=== PATIENT | female | born 1975 | race Caucasian/White ===

== ENCOUNTER 2018-09-27 15:42 | Emergency (ER) | payer OTHER ==
[~2018-09-27] VITALS: Ht 172.7 cm; Wt 125.7 kg
[2018-09-27] MEDS ORDERED: [UNRECOGNIZED DRUG - OTHER] PO (15:57)
[2018-09-27 16:10] LABS: URINE BILIRUBIN NEGATIVE (Negative); URINE BLOOD 3+ (Negative); URINE GLUCOSE-RANDOM NEGATIVE (Negative); URINE KETONES NEGATIVE (Negative); URINE LEUKOCYTES-REFLEX NEGATIVE (Negative); URINE NITRITE-REFLEX NEGATIVE (Negative); URINE PROTEIN TRACE (Negative); URINE UROBILINOGEN 0.2 E.U./dl (0.2-1.0)
[2018-09-27 16:11] LABS: URINE COLOR RED
[2018-09-27 16:12] LABS: URINE CLARITY SLIGHTLY CLOUDY
[2018-09-27 16:18] LABS: CASTS None Seen /LPF (None Seen); CRYSTALS None Seen /LPF (None Seen); MUCUS None Seen strn/LPF (None Seen); SQUAMOUS 4-10 Moderate /LPF (0-3); URINE RBC >20 Many /HPF (0-2)
[2018-09-27 16:19] LABS: BACTERIA-REFLEX None Seen /HPF (None Seen); URINE WBC-REFLEX None Seen /HPF (0-5)
[2018-09-27 16:44] LABS: ABSOLUTE EOSINOPHILS 0.1 thou/uL (0.0-0.7); ABSOLUTE LYMPHOCYTES 1.9 thou/uL (0.8-5.3); ABSOLUTE MONOCYTES 0.5 thou/uL (0.0-1.2); ABSOLUTE NEUTROPHILS 5.6 thou/uL (1.6-8.1); BASOPHILS 0.6 %; EOSINOPHILS 1.5 %; HEMATOCRIT 40.8 % (37.0-47.0); HEMOGLOBIN 13.7 gm/dL (12.0-15.0); LYMPHOCYTES 23.5 %; MCHC 33.6 g/dL (28.0-37.0); MCV 83.3 fL (80.0-100.0); MONOCYTES 5.6 %; MPV 9.1 fl. (7.2-11.1); NUCLEATED RBCS 0 /100WBC; PLATELET COUNT* 204 thou/uL (150-400); POLYS 68.8 %; RBC 4.89 mil/uL (4.20-5.00); RDW-CV 13.9 % (10.5-14.5); WBC 8.1 thou/uL (4.0-11.0)
[2018-09-27 17:01] LABS: ALBUMIN 3.9 g/dL (3.4-5.0); CALCIUM 9.7 mg/dL (8.5-10.1); CREATININE 0.7 mg/dL (0.6-1.3); POTASSIUM 3.6 mmol/L (3.5-5.1); TOTAL BILIRUBIN 0.3 mg/dL (<0.1-1.0); TOTAL PROTEIN 7.8 g/dL (6.4-8.2)
[2018-09-27] MEDS ORDERED: ZOFRAN ODT4 MG PO (18:21)
[2018-09-27] MEDS ORDERED: NORCO 5-325 TA1 EACH PO (18:21)
[2018-09-27 18:47] VITALS: BP 145/87
== END 2018-09-27 18:49 | disposition home or self-care (01) ==
LOC: M.ERS 15:42
PROVIDERS: Physician Assistant
DX: R10.11 Right upper quadrant pain (principal); R11.2 Nausea with vomiting, unspecified; Z90.49 Acquired absence of other specified parts of digestive tract

== ENCOUNTER → 2018-10-24 | Day surgery (SDC) | payer OTHER ==
[~2018-10-24] MED LIST: DIETHYLPROPION25 MG PO; NORCO 5-325 TA1 EACH PO; ZOFRAN ODT4 MG PO; [UNRECOGNIZED DRUG - OTHER] PO
--- NOTE | 2018-10-25 19:03 | OP ---
[address] [address] OPERATIVE REPORT Name: MADISONLINK John Room: [facility]#: [id number] Admission: 10/24/18 Attend Phys: Aubree Joe DO Discharge: Date of : 77 Report #: [id number] THIS REPORT FOR: //name// CC: Aubree Joe [facility] physician/PCP DATE OF SERVICE: 10/24/2018 PREOPERATIVE DIAGNOSES: Cholelithiasis, cholecystitis, dilated common bile duct. POSTOPERATIVE DIAGNOSES: Cholelithiasis, cholecystitis, dilated common bile duct. FINDINGS: Dilated gallbladder with multiple dense adhesions, distended stomach. The bile duct was dilated, but appeared to be without obstruction. Contrast did flow promptly into the duodenum. Fluoroscopic time was 14 seconds. SURGEON: Aubree Joe DO. COSURGEON: Yecenia Siegel, PGY-1. HYDRAULIC ASSEMBLER: Emmanuel Evans, MS3. PROCEDURE PERFORMED: Laparoscopic cholecystectomy with intraoperative cholangiogram and surgeon interpretation of images. ESTIMATED BLOOD LOSS: 5. ANESTHESIA: General endotracheal and local. SPECIMENS: Gallbladder. COMPLICATIONS: None. CONDITION: Stable. DISPOSITION: PACU to home. HISTORY OF PRESENT ILLNESS: The patient is a very rhea 43-year-old female who presented to my office with a complaint of right upper quadrant abdominal pain which had been intermittent over the years. She had had 2 previous ultrasounds completed, both of which showed gallstones, cholelithiasis, cholecystitis and a dilated common bile duct. She had symptoms consistent with biliary colic. She was then consented for laparoscopic cholecystectomy with intraoperative cholangiogram. Risks discussed included bleeding, infection, pain, scar [address] [address] OPERATIVE REPORT Name: LINK WALLACE Room: [facility]#: [id number] Admission: 10/24/18 Attend Phys: Aubere Joe DO Discharge: Date of : 77 Report #: [id number] formation, injury to bowel, liver or bile duct, hernia at the incision sites, need for an open procedure and risks of general anesthesia. The patient understood these risks and elected to proceed. DESCRIPTION OF PROCEDURE: The patient was brought to the operating room. She was laid supine on the operating room table. SCDs were placed on bilateral lower extremities. Ancef was given in the perioperative period. General endotracheal anesthesia was induced by Anesthesia without difficulty. Abdomen was prepped and draped in standard sterile fashion. Timeout was performed to verify patient and procedure. A 10 mL of 0.5% Marcaine were injected in the infraumbilical area. An 11 blade was used to make an incision through an old incision in the infraumbilical area. Cautery was used for hemostasis. S retractors were used to visualize the fascia. Fascia was grasped and elevated between 2 Kochers. Fascia was incised using cautery. Peritoneum was bluntly entered using a Sumaya clamp. Finger was introduced into the abdomen to assure that there were no luis-incisional adhesions, none were identified. Two stitches of 0 Vicryl placed on the fascia. Christopher trocar was introduced and secured with 0 Vicryl stitches. Abdomen was insufflated. The patient was placed head up and tilted left side down. Camera was introduced and a brief anterior abdominal exploration was undertaken. The stomach was hugely distended. Anesthesia did fashion pass an OG tube with excellent decompression of the stomach. Gallbladder was then easily visualized. It also was distended and covered with a dense layer of adhesions. Trocars were then introduced under direct visualization, an 11 in the subxiphoid area and two 5 mm in the right upper quadrant. Edge of the gallbladder was grasped and elevated. Adhesions were taken down until we reached the triangle of Calot utilizing cautery. The peritoneum overlying the triangle was then incised using cautery. Both duct and artery were then easily visualized, both were circumferentially dissected free using a [place] dissector. Valencia clamp was then brought onto the field and the neck of the gallbladder was grasped. Catheter was introduced with one pass. We had excellent flow of saline. The patient was then returned to supine position. C-arm was brought into the field and fluoroscopy was undertaken. Contrast promptly flowed through the cystic duct into the common bile duct. The bilateral hepatic radicles could easily be seen. There was no sign of any obstruction. The common bile duct itself was somewhat dilated, but contrast did flow freely into the duodenum. The catheter and clamp were then removed. The patient was returned to the head up and left side down position. The duct and artery were then both doubly clipped and ligated. Gallbladder was then removed from the liver bed utilizing cautery with no further difficulty. Specimen was placed within an EndoCatch bag. Liver bed was inspected. It was hemostatic. Clips were inspected. They were intact. There was no bleeding or leakage noted from the area of the clips. The patient was then returned to supine. Trocars were removed under direct visualization. There was no bleeding noted from the peritoneum. Abdomen was then completely desufflated. Christopher trocar was removed and EndoCatch bag was removed with the specimen intact. Kochers were then placed on the fascia of our infraumbilical port. Previously placed [address] [place] [address] OPERATIVE REPORT Name: LINK WALLACE Room: [facility]#: [id number] Admission: 10/24/18 Attend Phys: Aubree Joe DO Discharge: Date of : 77 Report #: [id number] stitches were removed and a #0 Vicryl stitch was placed in [id number] fashion with excellent approximation of the fascia. An additional 10 mL of 0.5% Marcaine were injected in the fascia. This wound was closed in a layered fashion using deep and superficial stitches of 3-0 Vicryl in inverted interrupted fashion. All skin wounds were then closed with 4-0 Monocryl. A total of 30 mL of 0.5% Marcaine were used to anesthetize the wounds. Wounds were then cleansed and covered with Mastisol, Steri-Strips, 4 x 4's and a Tegaderm. The patient was then allowed to awaken from anesthesia, was extubated and transported to the recovery room with no further difficulties. Counts were correct x 2 at the conclusion of the case. <ELECTRONICALLY SIGNED> By: Aubree Joe DO 10/25/18 1903 1455 1625Csudhakar Joe DO /nt
--- NOTE | 2018-10-26 15:06 | PATH ---
[facility] [address] [place] [address] PATHOLOGY RPT PROCEDURE Name: MAGALY WALLACE Room: [facility].#: [id number] Admission: 10/24/18 Date of : 77 Discharge: Report #: [id number] Path Case #: [id number] [facility] Accession Number: [id number] . 01 Material submitted: . gallbladder - GALLBLADDER . 01 Clinical history: . Cholelithiasis, gallstones . 02 Diagnosis: Gallbladder: - Chronic cholecystitis with cholesterolosis including cholesterol polyps. See comment. LBQ/10/26/2018 . 02 Comment: No gallstones were identified in the submitted specimen. (ANTHONY/db; 10/26/2018) . 02 Electronically signed: . Te Cerda MD, Pathologist NPI- [id number] . 01 Gross description: . The specimen is received in formalin, labeled "Magaly Wallace, gallbladder". Received is an intact gallbladder measuring 7.4 x 3.6 x 3.6 cm in greatest dimensions displaying blue-del real serosal surfaces. Opening the gallbladder reveals a velvety, bile-stained mucosa with multiple polypoid excrescences measuring 0.3 cm each. The gallbladder wall measures 0.1 cm in thickness. Calculi are not present upon filtration of the gallbladder and specimen container, after opening of the gallbladder. Pond Tender sections, to include the proximal margin and polypoid excrescences, are submitted in cassette A1. (CAA; 10/25/2018) QAC/QAC . 02 Pathologist provided ICD-10: K81.1, K82.4 . 02 CPT . 070251 Specimen Comment: A courtesy copy of this report has been sent to Specimen Comment: [phone]. Specimen Comment: Report sent to Performed at: [address], [place], [place] [id number] [place] [address] PATHOLOGY RPT PROCEDURE Name: MAGALY WALLACE John Room: [facility] July#: [id number] Admission: 10/24/18 Date of : 77 Discharge: Report #: [id number] Path Case #: [id number] MD Ken Laura MD Phone: [phone] Performed at: [address], [place], [place] [id number] MD Te Cerda MD Phone: [phone]
== END | disposition home or self-care (01) ==
LOC: M.SUR 10:30
DX: K81.1 Chronic cholecystitis (principal); K83.8 Other specified diseases of biliary tract; Z90.49 Acquired absence of other specified parts of digestive tract; Z98.890 Other specified postprocedural states

== ENCOUNTER 2020-01-04 17:18 | Emergency (ER) | payer OTHER, MEDICAID ==
[~2020-01-04] VITALS: Ht 175.3 cm; Wt 122.5 kg
[2020-01-04] MEDS ORDERED: PROGESTERO50 MG/1 M3 IM (17:41)
[2020-01-04 17:44] LABS: URINE BILIRUBIN NEGATIVE (Negative); URINE BLOOD 3+ (Negative); URINE CLARITY CLEAR; URINE COLOR YELLOW; URINE GLUCOSE-RANDOM NEGATIVE (Negative); URINE KETONES NEGATIVE (Negative); URINE LEUKOCYTES-REFLEX NEGATIVE (Negative); URINE NITRITE-REFLEX NEGATIVE (Negative); URINE PROTEIN NEGATIVE (Negative); URINE SPECIFIC GRAVITY >= 1.030 (1.005-1.030); URINE UROBILINOGEN 0.2 E.U./dl (0.2-1.0)
[2020-01-04 17:50] LABS: SQUAMOUS >10 Many /LPF (0-3)
[2020-01-04 17:51] LABS: MUCUS 4-6 Moderate strn/LPF (None Seen); URINE RBC 3-10 Few /HPF (0-2); URINE WBC-REFLEX 0-5 Rare /HPF (0-5)
[2020-01-04 17:52] LABS: CASTS None Seen /LPF (None Seen); CRYSTALS None Seen /LPF (None Seen)
[2020-01-04 18:04] LABS: ABSOLUTE BASOPHILS 0.1 thou/uL (0.0-0.2); ABSOLUTE EOSINOPHILS 0.2 thou/uL (0.0-0.7); ABSOLUTE LYMPHOCYTES 1.9 thou/uL (0.8-5.3); ABSOLUTE MONOCYTES 0.5 thou/uL (0.0-1.2); ABSOLUTE NEUTROPHILS 8.1 thou/uL (1.6-8.1); BASOPHILS 0.9 %; HEMATOCRIT 40.6 % (37.0-47.0); HEMOGLOBIN 14.1 gm/dL (12.0-15.0); LYMPHOCYTES 17.7 %; MCH 30.1 pg (26.0-34.0); MCHC 34.7 g/dL (28.0-37.0); MCV 86.7 fL (80.0-100.0); MONOCYTES 4.8 %; MPV 9.1 fl. (7.2-11.1); NUCLEATED RBCS 0 /100WBC; PLATELET COUNT* 219 thou/uL (150-400); POLYS 74.6 %; RBC 4.68 mil/uL (4.20-5.00); WBC 10.9 thou/uL (4.0-11.0)
[2020-01-04 18:12] LABS: CALCIUM 8.7 mg/dL (8.5-10.1); CREATININE 0.7 mg/dL (0.6-1.3); POTASSIUM 3.5 mmol/L (3.5-5.1)
[2020-01-04 18:17] LABS: ALBUMIN 3.4 g/dL (3.4-5.0); TOTAL BILIRUBIN 0.3 mg/dL (<0.1-1.0); TOTAL PROTEIN 7.3 g/dL (6.4-8.2)
[2020-01-04] MEDS ORDERED: KEFLEX500 M1 PO (19:29)
[2020-01-04 19:44] VITALS: BP 133/88
== END 2020-01-04 19:46 | disposition home or self-care (01) ==
LOC: M.ERS 17:18
PROVIDERS: Nurse Practitioner Family
DX: O23.41 Unspecified infection of urinary tract in pregnancy, first trimester (principal); O46.91 Antepartum hemorrhage, unspecified, first trimester; Z3A.12 12 weeks gestation of pregnancy; Z90.89 Acquired absence of other organs

== ENCOUNTER 2021-01-17 10:14 | Emergency (ER) | payer OTHER, MEDICAID ==
[~2021-01-17] VITALS: Ht 172.7 cm; Wt 119.5 kg
[~2021-01-17 10:14] MED LIST changes: +KEFLEX500 M1 PO; +PROGESTERO50 MG/1 M3 IM
[2021-01-17] MEDS ORDERED: ADIPEX-P37.5 MG PO (10:38)
[2021-01-17] MEDS ORDERED: DIETHYLPROPION25 MG PO (10:39)
[2021-01-17] MEDS ORDERED: NAPROSYN500 M1 PO (10:39)
[2021-01-17] MEDS ORDERED: COPPER IUD INTRAUTERI (10:40)
[2021-01-17 10:52] LABS: ABSOLUTE EOSINOPHILS 0.1 thou/uL (0.0-0.7); ABSOLUTE LYMPHOCYTES 1.6 thou/uL (0.8-5.3); ABSOLUTE MONOCYTES 0.4 thou/uL (0.0-1.2); ABSOLUTE NEUTROPHILS 4.9 thou/uL (1.6-8.1); BASOPHILS 0.6 %; EOSINOPHILS 1.7 %; HEMATOCRIT 37.4 % (37.0-47.0); HEMOGLOBIN 12.8 gm/dL (12.0-15.0); MCH 28.6 pg (26.0-34.0); MCHC 34.2 g/dL (28.0-37.0); MCV 83.6 fL (80.0-100.0); MONOCYTES 5.7 %; MPV 8.2 fl. (7.2-11.1); NUCLEATED RBCS 0 /100WBC; PLATELET COUNT* 213 thou/uL (150-400); RBC 4.47 mil/uL (4.20-5.00); RDW-CV 13.5 % (10.5-14.5)
[2021-01-17 11:01] LABS: CALCIUM 8.4 mg/dL (8.5-10.1); CREATININE 0.7 mg/dL (0.6-1.3); POTASSIUM 3.9 mmol/L (3.5-5.1)
[2021-01-17 11:02] LABS: URINE BILIRUBIN NEGATIVE (Negative); URINE BLOOD 3+ (Negative); URINE CLARITY SL CLOUDY; URINE COLOR YELLOW; URINE GLUCOSE-RANDOM NEGATIVE (Negative); URINE KETONES NEGATIVE (Negative); URINE LEUKOCYTES-REFLEX TRACE (Negative); URINE NITRITE-REFLEX NEGATIVE (Negative); URINE PROTEIN NEGATIVE (Negative); URINE SPECIFIC GRAVITY 1.015 (1.005-1.030); URINE UROBILINOGEN 0.2 E.U./dl (0.2-1.0)
[2021-01-17 11:08] LABS: SQUAMOUS >10 Many /LPF (0-3)
[2021-01-17 11:09] LABS: CASTS None Seen /LPF (None Seen); CRYSTALS None Seen /LPF (None Seen); URINE RBC >20 Many /HPF (0-2); URINE WBC-REFLEX 0-5 Rare /HPF (0-5)
[2021-01-17 11:10] LABS: BACTERIA-REFLEX 1-9 Few /HPF (None Seen)
[2021-01-17 11:12] LABS: ALBUMIN 3.7 g/dL (3.4-5.0); TOTAL BILIRUBIN 0.4 mg/dL (<0.1-1.0); TOTAL PROTEIN 7.5 g/dL (6.4-8.2)
[2021-01-17 12:36] VITALS: BP 140/72
--- NOTE | 2021-01-18 14:37 | EKG ---
[place] [address] ELECTROCARDIOGRAM REPORT Name: LINK WALLACE Room: [facility]#: [id number] Admission: 01/17/21 Attend Phys: Discharge: 01/17/21 Date of : 77 Date of Service: 01/17/21 1037 Report #: [id number] THIS REPORT FOR: //name// [facility] ED Test Date: 2021-01-17 Test Time: 10:37:42 Pat Name: LINK WALLACE Department: Room: Gender: Radio/Tv Technician[facility] : 1975 Requested By: Mega Han Order Number: [id number] MD: Mayank Zepeda Measurements Intervals [place] Rate: 79 P: 6 CA: 148 QRS: -12 QRSD: 95 T: 19 QT: 405 QTc: 465 Interpretive Statements Sinus rhythm No previous ECG available for comparison Electronically Signed On 01-18-2021 14:37:21 CDT by Mayank Zepeda [email or web address] <ELECTRONICALLY SIGNED> By: Mayank Zepeda MD, [facility] 01/18/21 1437 1037 1037 Mayank Zepeda MD, FACC /EPI
== END 2021-01-17 12:37 | disposition home or self-care (01) ==
LOC: M.ERS 10:14
PROVIDERS: Family Medicine
DX: R42 Dizziness and giddiness (principal); R55 Syncope and collapse